=== PATIENT | male | born 1950 | race Caucasian/White ===

== ENCOUNTER 2018-01-29 00:24 | Emergency (ER) | payer MEDICARE ==
[~2018-01-29] VITALS: Ht 167.6 cm; Wt 66.0 kg
[2018-01-29 00:26] VITALS: BP 131/62; PULSE 71; RESP 18; TEMP 98.6; O2SAT 98
[2018-01-29] MEDS ORDERED: GELATIN 12 MM/7 MM FOAM TOPICAL ONE (01:00)
--- NOTE | 2018-01-29 01:13 | PD ---
HPI Chief Complaint: Bleeding Time Seen by Provider: 00:52 Travel History International Travel<30 days: No Contact w/Intl Traveler<30days: No Traveled to known affect area: No History of Present Illness HPI 67-year-old male presents to the emergency department by private transportation for complaint of bleeding from his surgical site. 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 Patient patient had sutures placed and a dressing applied. Patient states he subsequently drove from [facility] to [place] and did some moving of multiple objects doing repetitive lifting and carrying of heavy objects. Patient noted this evening while taking a sponge bath that there was significant bleeding from his wound site saturating his dressing. Patient states there is also bleeding onto the counter while he was taking a sponge bath. Patient states he does not recall being instructed not to do any physical exertion today was told not to take a shower today. Patient states due to the bleeding and saturation of the dressing decided to come to the emergency room to see if perhaps 1 of the sutures had become dislodged. Patient did not look at the wound site himself. Patient denies other concerns or complaints other than he states that there is some soreness at the site after noticing the bleeding. Patient does not report blood thinning agents as a routine medication. Patient rates his discomfort 2/10 in intensity. PFSH Past Medical History Narrative Medical Basal cell cancer melanoma; nursing notes reviewed ?: Not Social History Tobacco Use: No Allergies-Medications (Allergen,Severity, Reaction): Coded Allergies: Quinolones (Verified Allergy, Severe, 01/29/18) Reported Meds & Prescriptions Reported Meds & Active Scripts Active No Active Prescriptions or Reported Medications Review of Systems Except as stated in HPI: all other systems reviewed are Neg General / Constitutional: No: Fever HENT: No: Congestion Cardiovascular: No: Chest Pain or Discomfort Respiratory: No: Shortness of Breath Gastrointestinal: No: Abdominal Pain Genitourinary: No: Flank Pain Musculoskeletal: No: Myalgias, Arthralgias Skin: No Rash Neurologic: No: Weakness Psychiatric: No: Anxiety Hematologic/Lymphatic: No: Easy Bruising Physical Exam Narrative GENERAL: Well-developed well-nourished male no acute distress no respiratory distress SKIN: Warm and dry. Left anterior chest wall sutured area with running suture 5.5 cm without active bleeding or oozing after saturated dressing is removed area is cleansed with saline and sterile gauze no evidence of suture interruption or active bleeding. Mild tenderness to palpation no soft tissue swelling induration or fluctuance. HEAD: Normocephalic. EYES: No scleral icterus. No injection or drainage. NECK: Supple, trachea midline. No JVD or lymphadenopathy. CARDIOVASCULAR: Regular rate and rhythm without murmurs, gallops, or rubs. RESPIRATORY: Breath sounds equal bilaterally. No accessory muscle use. Data Data Last Documented VS Vital Signs Date Time Temp Pulse Resp B/P (MAP) Pulse Ox O2 Delivery O2 Flow Rate FiO2 01/29/18 02:02 70 18 114/77 (89) 98 01/29/18 00:35 Room Air 01/29/18 00:26 98.6 Orders Orders Gelatin 12 Mm/7 Mm Top (Gelfoam 12 Mm/7 (01/29/18 01:00) Ed Discharge Order (01/29/18 01:37) Acetaminophen (Tylenol) (01/29/18 01:45) MDM Medical Decision Making Medical Screen Exam Complete: Yes Emergency Medical Condition: Yes Medical Record Reviewed: Yes Differential Diagnosis Seroma, coagulopathy, wound dehiscence Narrative Course Wound site looks intact; site cleansed; Gelfoam applied; sterile dressing applied; ice pack applied; patient is stable for outpatient management Diagnosis Primary Impression: Visit for wound check Referrals: Help Desk Team Leader call for appointment Patient Instructions: General Instructions Additional Instructions: May use acetaminophen/Tylenol as needed for minor discomfort or for fever 100.4 F or greater Follow-up with your university dean call office in a.m. Return to the emergency department for any concerns or change in condition May use ice pack intermittently to left chest wall Scripts No Active Prescriptions or Reported Meds Disposition: 01 DISCHARGE HOME Condition: Stable Keren Stokes MD January 29, 2018 01:13
[2018-01-29] MEDS ORDERED: ACETAMINOPHEN 325 MG TAB PO ONE (01:45)
[2018-01-29 02:02] VITALS: BP 114/77
== END 2018-01-29 02:10 | disposition home or self-care (01) ==
LOC: PHED 00:24
DX: Z48.01 Encounter for change or removal of surgical wound dressing (principal); L76.21 Postprocedural hemorrhage of skin and subcutaneous tissue following a dermatologic procedure; Z85.820 Personal history of malignant melanoma of skin
CPT/HCPCS: 12001